=== PATIENT | male | born 1950 | race Caucasian/White ===

== ENCOUNTER → 2016-06-27 | Outpatient (CLI) | payer OTHER | LOC: MMPC 09:00 | PROVIDERS: ATTEND Family Medicine | DX: K86.89 Other specified diseases of pancreas (principal); K63.89 Other specified diseases of intestine; K52.9 Noninfective gastroenteritis and colitis, unspecified; R39.9 Unspecified symptoms and signs involving the genitourinary system; D89.9 Disorder involving the immune mechanism, unspecified | CPT/HCPCS: 90746; G0439; G0463 ==

== ENCOUNTER → 2016-07-04 | Outpatient (CLI) | payer OTHER ==
[2016-07-04 07:41] LABS: BASOPHILS # (AUTO) 0.09 10*3/UL; BASOPHILS % (AUTO) 1.3 % (0-1); EOSINOPHILS % (AUTO) 7.6 % (0-8); HEMOGLOBIN 14.4 g/dL (14.0-18.0); IMM GRAN % (AUTO) 0 % (0-5); IMM GRAN# (AUTO) 0 10*3/UL; LYMPHOCYTES # (AUTO) 2.84 10*3/uL; LYMPHOCYTES % (AUTO) 40.9 % (10-50); MEAN CORPUSCULAR HEMOGLOBIN 27.4 PG (27-31); MEAN CORPUSCULAR HGB CONC 31.3 g/dL (33-37); MEAN PLATELET VOLUME 9.2 FL (7.4-12.2); MONOCYTES # (AUTO) 0.55 10*3/UL (0.3-0.8); MONOCYTES % (AUTO) 7.9 % (5-15); NEUTROPHILS # (AUTO) 2.94 10*3/UL; NEUTROPHILS % (AUTO) 42.3 % (50-80); RDW COEFFICIENT OF VARIATION 16.3 % (11.5-14.5); RED BLOOD COUNT 5.26 10^6/uL (4.70-6.10); WHITE BLOOD COUNT 6.95 10^3/uL (4.8-10.8)
[2016-07-04 07:49] LABS: LDL CHOLESTEROL,CALCULATED 70.6 mg/dL
[2016-07-04 07:57] LABS: PLATELET MORPHOLOGY COMMENT NORMAL MORPHOLOGY (NORM)
== END ==
LOC: LAB 07:22
PROVIDERS: ATTEND Internal Medicine Gastroenterology
DX: K86.89 Other specified diseases of pancreas (principal); K52.9 Noninfective gastroenteritis and colitis, unspecified; K51.90 Ulcerative colitis, unspecified, without complications; K63.89 Other specified diseases of intestine; R39.9 Unspecified symptoms and signs involving the genitourinary system; Z79.899 Other long term (current) drug therapy
CPT/HCPCS: 36415; 80061; 84443; 85025; G0103

== ENCOUNTER → 2016-07-29 | Outpatient (CLI) | payer OTHER | LOC: MMPC 09:00 | PROVIDERS: ATTEND Family Medicine | DX: D89.9 Disorder involving the immune mechanism, unspecified (principal) | CPT/HCPCS: 90746; G0463 ==

== ENCOUNTER → 2016-08-02 | Outpatient (CLI) | payer OTHER ==
[2016-08-02 10:58] LABS: HEMATOCRIT 46.8 % (42.0-52.0); MEAN CORPUSCULAR HGB CONC 32.1 g/dL (33-37); MEAN PLATELET VOLUME 9.1 FL (7.4-12.2); RED BLOOD COUNT 5.36 10^6/uL (4.70-6.10); WHITE BLOOD COUNT 7.57 10^3/uL (4.8-10.8)
[2016-08-02 11:12] LABS: BILIRUBIN,TOTAL 0.5 mg/dL (0.3-1.2); TOTAL PROTEIN 7.2 g/dL (6.1-8.0)
== END ==
LOC: LAB 10:42
PROVIDERS: ATTEND Nurse Practitioner
DX: K51.90 Ulcerative colitis, unspecified, without complications (principal); Z79.899 Other long term (current) drug therapy
CPT/HCPCS: 36415; 80076; 85027

== ENCOUNTER → 2016-09-05 | Outpatient (CLI) | payer OTHER ==
[2016-09-05 08:35] LABS: HEMATOCRIT 49.4 % (42.0-52.0); HEMOGLOBIN 16.3 g/dL (14.0-18.0); MEAN CORPUSCULAR HEMOGLOBIN 28.3 PG (27-31); MEAN CORPUSCULAR VOLUME 85.9 FL (80-90); MEAN PLATELET VOLUME 9.2 FL (7.4-12.2); RED BLOOD COUNT 5.75 10^6/uL (4.70-6.10)
== END ==
LOC: LAB 08:16
PROVIDERS: ATTEND Internal Medicine Gastroenterology
DX: K51.90 Ulcerative colitis, unspecified, without complications (principal); Z79.899 Other long term (current) drug therapy
CPT/HCPCS: 36415; 85027

== ENCOUNTER → 2016-09-26 | Outpatient (CLI) | payer OTHER | LOC: MMPC 09:00 | PROVIDERS: ATTEND Family Medicine | DX: B02.9 Zoster without complications (principal) | CPT/HCPCS: 99213; G0463 ==

== ENCOUNTER → 2016-11-28 | Outpatient (CLI) | payer OTHER | LOC: MMPC 09:00 | PROVIDERS: ATTEND Family Medicine | DX: K52.9 Noninfective gastroenteritis and colitis, unspecified (principal); K63.89 Other specified diseases of intestine | CPT/HCPCS: 90746; G0463 ==

== ENCOUNTER → 2016-12-26 | Outpatient (CLI) | payer OTHER ==
[2016-12-26 08:30] LABS: BLOOD UREA NITROGEN 13 mg/dL (7-22); BUN/CREATININE RATIO 14.44 (6-20); CALCIUM 8.9 mg/dL (8.7-10.7); EST GLOMERULAR FILTRATION > 60 (>60 ml/min/1.73m(2)); SERUM ALBUMIN 4.1 g/dL (3.5-4.8)
[2016-12-26 08:34] LABS: BASOPHILS % (AUTO) 0.9 % (0-1); EOSINOPHILS % (AUTO) 2.1 % (0-8); HEMATOCRIT 48.4 % (42.0-52.0); HEMOGLOBIN 16.6 g/dL (14.0-18.0); MEAN CORPUSCULAR HGB CONC 34.3 g/dL (33-37); MEAN CORPUSCULAR VOLUME 93.3 FL (80-90); MEAN PLATELET VOLUME 9.5 FL (7.4-12.2); MONOCYTES % (AUTO) 8.8 % (5-15); NEUTROPHILS % (AUTO) 51.5 % (50-80); RED BLOOD COUNT 5.19 10^6/uL (4.70-6.10)
[2016-12-26 08:35] LABS: BASOPHILS # (AUTO) 0.07 10*3/UL; EOSINOPHILS # (AUTO) 0.16 10*3/UL; LYMPHOCYTES # (AUTO) 2.85 10*3/uL; MONOCYTES # (AUTO) 0.68 10*3/UL (0.3-0.8); PLATELET MORPHOLOGY COMMENT NORMAL MORPHOLOGY (NORM); RBC MORPHOLOGY COMMENT NORMAL MORPHOLOGY (NORM); WBC MORPHOLOGY COMMENT NORMAL MORPHOLOGY (NORM)
== END ==
LOC: LAB 07:57
PROVIDERS: ATTEND Internal Medicine Gastroenterology
DX: K51.90 Ulcerative colitis, unspecified, without complications (principal); Z79.899 Other long term (current) drug therapy
CPT/HCPCS: 36415; 80053; 85025